=== PATIENT | female | born 1960 | race Caucasian/White ===

== ENCOUNTER 2023-12-07 14:09 | Inpatient (IN) | payer MEDICARE, MEDICAID ==
[~2023-12-07] VITALS: Ht 172.7 cm; Wt 102.5 kg
[~2023-12-07 14:09] MED LIST: ALBU18HF12 IH; DILT-72 PO; DULO-114 PO; ESZO3TAB53 PO; LEVO75 PO; LISI-894 PO; MODA200T48 PO; PRAZ5 PO; QUET400T13 PO
[2023-12-07] MEDS ORDERED: MAG HYDROX/ALUMINUM HYD/SIMETH ES 30 ML SUSPENSION UDCUP PO PRN (21:15)
[2023-12-07] MEDS ORDERED: PROMETHAZINE HCL 25 MG TABLET PO PRN (21:15)
[2023-12-07] MEDS ORDERED: HydrOXYzine PAMOATE 50 MG CAPSULE PO PRN (21:15)
[2023-12-07] MEDS ORDERED: GuaiFENesin/D-METHORPHAN [SUGAR-FREE] 200-20MG/10 ML SYRUP UDCUP PO PRN (21:15)
[2023-12-07] MEDS ORDERED: LOPERAMIDE HCL 2 MG CAPSULE PO PRN (21:15)
[2023-12-07] MEDS ORDERED: MAGNESIUM HYDROXIDE SUSPENSION 30 ML UDCUP PO PRN (21:15)
[2023-12-07] MEDS ORDERED: TUBERCULIN, PURIFIED PROTEIN DERIVATIVE 5 TU/0.1 ML SYRINGE ID ONE (21:15)
[2023-12-07] MEDS ORDERED: OLANZapine 5 MG RAPDIS TABLET PO PRN (21:15)
[2023-12-08 00:21] VITALS: BP 117/62; PULSE 73; RESP 18; TEMP 97.7
[2023-12-08] MEDS: ZOLPIDEM TARTRATE 10 MG TABLET PO PRN (00:26)
[2023-12-08 08:33] VITALS: BP 132/62; PULSE 67; RESP 18; TEMP 96.9; O2SAT 95
[2023-12-08 08:45] LABS: HEMOGLOBIN A1C 5.7 % (3.8-5.6)
[2023-12-08 08:56] LABS: CHOL/HDL RATIO 3.7 (3.9-5.7); FREE T4 (FREE THYROXINE) 0.73 ng/dL (0.76-1.46); THYROID STIMULATING HORMONE 1.49 uIU/mL (0.36-3.74)
[2023-12-08] MEDS: FOLIC ACID 1 MG TABLET PO SCH (09:36)
[2023-12-08] MEDS: DULoxetine HCL 60 MG CAPSULE PO SCH (09:36)
[2023-12-08] MEDS: GABAPENTIN 400 MG CAPSULE PO SCH (09:36)
[2023-12-08] MEDS: MULTIVITAMINS WITH MINERALS, THERAPEUTIC TABLET PO SCH (09:36)
[2023-12-08] MEDS: OMEGA-3/DHA/EPA/FISH OIL 1,000 MG CAPSULE PO SCH (09:36)
[2023-12-08] MEDS: THIAMINE 100 MG TABLET PO SCH (09:39)
[2023-12-08] MEDS: LORazepam 2 MG TABLET PO PRN (10:26)
[2023-12-08 20:08] VITALS: BP 140/64; PULSE 80; RESP 18; TEMP 98.3; O2SAT 92
[2023-12-08] MEDS: OLANZapine 5 MG RAPDIS TABLET PO SCH (20:33)
[2023-12-08] MEDS: MELATONIN 5 MG TABLET PO SCH (20:33)
[2023-12-09 16:16] VITALS: BP 151/62; PULSE 80; RESP 16; TEMP 98.2; O2SAT 98
[2023-12-09] MEDS: PNEUMOCOCCAL VACCINE POLYVALENT 0.5 ML SYRINGE [PPSV23] IM. ONE (17:52)
[2023-12-09 18:02] VITALS: BP 172/84; PULSE 83
[2023-12-09] MEDS: LISINOPRIL 20 MG TABLET PO SCH (18:02)
[2023-12-09] MEDS: OLANZapine 10 MG RAPDIS TABLET PO SCH (20:39)
[2023-12-09 20:44] VITALS: BP 161/84; PULSE 85; RESP 18; TEMP 97.4; O2SAT 97
[2023-12-09] MEDS: ESZOPICLONE 3 MG TABLET PO PRN (20:53)
[2023-12-10] MEDS: DULoxetine HCL 20 MG CAPSULE PO SCH (08:14)
[2023-12-10] MEDS: HydrALAZINE HCL 10 MG TABLET PO PRN (12:46)
[2023-12-10 15:03] VITALS: BP 150/82; PULSE 85; RESP 17; TEMP 97.7; O2SAT 96
[2023-12-10] MEDS: AmLODIPine BESYLATE 10 MG TABLET PO ONE (15:04)
[2023-12-10 20:07] VITALS: BP 144/79; PULSE 89; TEMP 97.6; O2SAT 95
[2023-12-11] MEDS: AmLODIPine BESYLATE 10 MG TABLET PO SCH (08:16)
[2023-12-11] MEDS: DULoxetine HCL 30 MG CAPSULE PO SCH (08:16)
[2023-12-11 08:21] VITALS: BP 140/80; PULSE 73; RESP 18; TEMP 96.3; O2SAT 99
[2023-12-11 08:47] LABS: APPEARANCE,URINE CLEAR (CLEAR); BILIRUBIN,URINE NEGATIVE (NEGATIVE); COLOR,URINE LIGHT YELLOW (YELLOW); GLUCOSE, URINE (UA) NEGATIVE (NEGATIVE); KETONES,URINE NEGATIVE (NEGATIVE); LEUKOCYTE ESTERASE ,URINE NEGATIVE (NEGATIVE); NITRATE,URINE NEGATIVE (NEGATIVE); OCCULT BLOOD,URINE NEGATIVE (NEGATIVE); PROTEIN,URINE NEGATIVE (NEGATIVE); SPECIFIC GRAVITIY, URINE 1.022 (1.003-1.030); UROBILINOGEN,URINE <=1.0 mg/dL (<=1.0)
[2023-12-11 08:53] LABS: ALCOHOL, URINE DRUG SCREEN NEGATIVE (NEGATIVE); AMPHET/METH SCREEN,URINE NEGATIVE (NEGATIVE); BARBITURATE SCREEN, URINE NEGATIVE (NEGATIVE); BENZODIAZEPINES SCREEN,URINE NEGATIVE (NEGATIVE); CANNABINOID SCREEN,URINE POSITIVE (NEGATIVE); COCAINE SCREEN,URINE NEGATIVE (NEGATIVE); METHADONE SCREEN, URINE NEGATIVE (NEGATIVE); OPIATE SCREEN,URINE NEGATIVE (NEGATIVE); PHENCYCLIDINE SCREEN,URINE NEGATIVE (NEGATIVE)
[2023-12-11 20:11] VITALS: BP 146/78; PULSE 84; RESP 16; TEMP 98.5; O2SAT 98
[2023-12-12 08:04] VITALS: BP 140/78; PULSE 77; RESP 16; TEMP 98.2
[2023-12-12] MEDS: DULoxetine HCL 60 MG CAPSULE PO SCH (08:28)
[2023-12-12] MEDS: ACETAMINOPHEN 325 MG TABLET PO PRN (10:08)
[2023-12-12 10:09] VITALS: RESP 18
[2023-12-12 11:08] VITALS: RESP 18
[2023-12-12 20:27] VITALS: BP 139/76; PULSE 79; RESP 17; TEMP 98.2; O2SAT 96
[2023-12-13 05:24] VITALS: BP 141/80; PULSE 75; RESP 17
[2023-12-13 16:10] VITALS: BP 130/63; PULSE 91; RESP 18; TEMP 98.1; O2SAT 99
[2023-12-13 20:30] VITALS: BP 117/70; PULSE 82; RESP 17; TEMP 98.3; O2SAT 96
[2023-12-14 13:12] VITALS: BP 131/68; PULSE 74; RESP 18; TEMP 98; O2SAT 95
[2023-12-14] MEDS ORDERED: MELA5TAB40 PO (15:38)
[2023-12-14] MEDS ORDERED: OMEG-135 PO (15:38)
[2023-12-14] MEDS ORDERED: GABA-1201 PO (15:38)
[2023-12-14] MEDS ORDERED: NALT50TA6 PO (15:38)
[2023-12-14] MEDS ORDERED: OLAN10TA26 PO (15:38)
[2023-12-14] MEDS ORDERED: DULO-113 PO (15:38)
[2023-12-14 20:13] VITALS: BP 153/69; PULSE 86; RESP 16; TEMP 98.2; O2SAT 97
[2023-12-15 08:11] VITALS: BP 140/80; PULSE 76; RESP 18; TEMP 97.9; O2SAT 97
[2023-12-15] MEDS ORDERED: AMLO-258 PO (09:23)
== END 2023-12-15 16:25 | disposition home or self-care (01) | DRG 885 ==
LOC: UNDOADMIN 21:48 → B2X 21:48
PROVIDERS: ADMIT Psychiatry & Neurology Psychiatry; ATTEND Psychiatry & Neurology Psychiatry
PROC: GZHZZZZ Group Psychotherapy (ICD-10-PCS; principal; 2023-12-08)
PROC: GZ51ZZZ Individual Psychotherapy, Behavioral (ICD-10-PCS; 2023-12-08)
DX: F25.1 Schizoaffective disorder, depressive type (principal); J44.9 Chronic obstructive pulmonary disease, unspecified; F17.200 Nicotine dependence, unspecified, uncomplicated; I10 Essential (primary) hypertension; E03.9 Hypothyroidism, unspecified; Z88.1 Allergy status to other antibiotic agents
CPT/HCPCS: 71046; 80061; 80307; 81003; 83036; 84439; 84443; 86480; 86592; 87081; 90732; Q9967; 36415-L1; 36415-TC